=== PATIENT | male | born 1935 | race Caucasian/White ===

== ENCOUNTER 2020-07-30 14:22 | Emergency (ER) | payer MEDICARE, OTHER, SELFPAY ==
[2020-07-30 14:24] VITALS: BP 157/59; PULSE 96; RESP 18; TEMP 36.8; O2SAT 98; BMI 28.8
--- NOTE | 2020-07-30 14:46 | XR_ITS ---
PROCEDURE: XR CHEST 2V CLINICAL HISTORY: cough COMPARISON: CT CT ABDOMEN PELVIS W CON from 07/30/2020 FINDINGS: The cardiomediastinal silhouette and pulmonary vascularity are within normal limits. There is mild biapical pleural thickening. Mild diffuse increased bronchovascular markings which may be related to smoking related lung disease. A slight asymmetric increased markings are present in the right midlung and left lower lobe which could be related to mild areas of infiltrate or atelectatic changes versus scarring. No effusions. No acute bony abnormalities. IMPRESSION: COPD changes with increased markings in the right midlung and left lower lobe which could be related to scarring, areas of infiltrate and/or atelectatic change. Dictated by: Reza Ocasio MD 07/31/2020 07:27 Reza Ocasio MD in [facility] 07/31/2020 07:27
--- NOTE | 2020-07-30 14:46 | [facility]H.EDGENADL ---
ED Disposition Clinical Impression: Colitis Disposition: Home, Self-Care Condition on Discharge: Fair Instructions: DI for Colitis, Keith Diet Additional Instructions: You have been evaluated for abdominal pain. Diagnosed with colitis. No evidence of bacterial infection. Please follow-up bland diet, bananas, rice, applesauce, toast. Take Zofran for nausea. Stay hydrated. Follow-up with your primary care doctor in 24 to 48 hours. Return to the emergency department for any new or worsening symptoms, vomiting or other concerns. Prescriptions: Ondansetron [Zofran 4mg ODT] 4 mg PO Q6 PRN #12 tab PRN Reason: Nausea Transmission Status: Pending to [facility] #[id number] Referrals: PCP,No [Non-Staff] - Time of Disposition: 17:38 - Critical Care Critical Care Time: No Attestation: On 07/30/20, the high probability of a clinically significant, sudden or life threatening deterioration of the following system(s) required my full and direct attention, intervention and personal management. The time I documented below is in addition to time spent performing reported procedures but includes the following listed in this critical care notation. Medical Decision Making - Medical Records Medical records reviewed: Yes: I reviewed the patient's medical records. - Jan Inquiry Pt receiving controlled substance: No Vital Signs: 07/30/20 14:24 07/30/20 16:18 07/30/20 16:30 Temperature 98.2 F Temperature Source Oral Pulse Rate 75 85 Pulse Rate [Radial] 96 H Respiratory Rate 18 Blood Pressure 156/72 H 143/81 H Blood Pressure [Right Arm] 157/59 H Blood Pressure Mean [Right Arm] 91 Blood Pressure Position [Right Arm] Sitting 02 Sat by Pulse Oximetry 98 96 92 L Oxygen Delivery Method Room Air - Lab Data Lab Results 07/30/20 14:35: Urine Color Yellow, Urine Appearance Clear, Urine pH 6.0, Ur Specific [place] 1.025, Urine Protein 1+, Urine Glucose (UA) Negative, Urine Ketones Negative, Urine Blood 2+, Urine Nitrate Negative, Urine Bilirubin Negative, Urine Urobilinogen 1.0, Ur Leukocyte Esterase Negative, Urine RBC 10-20, Urine WBC None, Ur Squamous Epith Cells 3-5, Amorphous Sediment 1+, Urine Bacteria None, Urine Mucus 1+ 07/30/20 14:40: WBC 9.2, RBC 5.89, Hgb 18.1 H, Hct 53.8 H, MCV 91.4, MCH 30.7, MCHC 33.6, RDW 13.2, Plt Count 152, MPV 8.1, Neut % (Auto) 85.8 H, Lymph % (Auto) 8.0 L, Butts % (Auto) 5.0, Eos % (Auto) 0.3, Baso % (Auto) 0.8, Neut # (Auto) 7.9 H, Lymph # (Auto) 0.8, Butts # (Auto) 0.5, Eos # (Auto) 0.0, Baso # (Auto) 0.1, Total Counted 100, Neutrophils % (Manual) 76, Lymphocytes % (Manual) 16, Monocytes % (Manual) 7, Eosinophils % (Manual) 1, Platelet Estimate Normal, RBC Morphology Normal 07/30/20 14:40: Sodium 137, Potassium 4.1, Chloride 100, Carbon Dioxide 28, Anion Gap 13.1, BUN 22 H, Creatinine 0.90, Estimated Creat Clear 69, Estimated GFR 80, Est GFR ( Amer) 97, Glucose 123 H, Calcium 9.1, Total Bilirubin 1.2, AST 49, ALT 71, Alkaline Phosphatase 95, Total Protein 8.2, Albumin 4.6, Globulin 3.6 H, Albumin/Globulin Ratio 1.3, Lipase 66 07/30/20 14:44: Troponin I < 0.01, NT-Pro-B Natriuret Pep 384 Result diagrams: 07/30/20 14:40 07/30/20 14:40 Orders (Tests/Meds): ED MEDICATIONS Discontinued Medications Generic Name Dose Route Start Last Admin Trade Name Freq PRN Reason Stop Dose Admin Dicyclomine HCl 10 mg 07/30/20 17:04 07/30/20 17:18 Dicyclomine 10mg Capsule PO 07/30/20 17:05 10 mg ONCE ONE Administration Iopamidol 75 ml 07/30/20 16:12 07/30/20 16:13 Iopamidol-370 (76%);100ml Bottle IV 07/30/20 16:13 75 ml ONCE ONE Administration Ondansetron HCl 4 mg 07/30/20 17:04 07/30/20 17:18 Ondansetron 4mg Odt SL 07/30/20 17:05 4 mg ONCE ONE Administration Sodium Chloride 10 ml 07/30/20 16:12 07/30/20 16:13 Sodium Chloride 0.9% 10ml Syr (Rad Only) IV 07/30/20 16:13 10 ml ONCE ONE Administration ORDERS Category D
--- NOTE | 2020-07-30 14:47 | CT_ITS ---
PROCEDURE: CT ABDOMEN PELVIS W CON CLINICAL INDICATION: LLQ pain Left lower quadrant pain with nausea and cough COMPARISON: No exams were available for comparison TECHNIQUE: IV Contrast: 75ML Isovue 370 Oral Contrast None Axial images obtained with sagittal and coronal reformats. All CT scans at the facility use one or more dose reduction, viz: automated exposure control, ma/kV adjustment per patient size (including targeted exams where dose is matched to indication, i.e. head), or iterative reconstruction technique. FINDINGS: LOWER THORAX: Multi focal areas of ground-glass attenuation is present in the lower aspect of the upper lobes and bilateral lower lobes with atelectatic change in the lung bases. Coronary artery calcifications are noted. There are also aortic valve calcifications. ABDOMEN & PELVIS: The liver, spleen, adrenal glands, pancreas, have an unremarkable appearance. No radiopaque gallstones. There are bilateral parapelvic and small renal cortical cysts. There is bilateral nephrolithiasis with a small cluster stones in the upper pole of the right kidney 7 x 3 mm and stones in the lower pole of the left kidney measuring up to 7 x 4 mm. There are multiple small stones in the urinary bladder measuring up to 5 mm. No evidence of appendicitis. There is mild thickening of the terminal ileum, ascending colon and transverse colon with a few air-fluid levels in large and small bowel which is nondistended. The prostate is enlarged at 6 by 5 cm. A 3 mm calcific density is present in the region of the proximal penile urethra and could represent a small stone. Diffuse motion artifact obscures fine detail. No acute bony findings. IMPRESSION: 1. Bilateral nephrolithiasis as well as stones in the urinary bladder. No hydronephrosis. No obstructing stones apparent. Possible stone within the penile urethra. 2. Enterocolitis suspected 3. Multifocal ground-glass infiltrates in the mid lower lung zones. Atypical/Covid19 pneumonia is considered 4. Coronary artery and aortic valve calcifications Dictated by: Reza Ocasio MD 07/31/2020 08:36 Reza Ocasio MD in [facility] 07/31/2020 08:36
[2020-07-30 14:53] LABS: Basophils # 0.1 K/mm3 (0-0.2); Basophils % 0.8 % (0.1-2.0); Eosinophils % 0.3 % (0.1-12.0); Hematocrit 53.8 % (42.0-52.0); Lymphocytes # 0.8 K/mm3 (0.7-4.5); Mean Corpuscular HGB Conc 33.6 g/dL (31.8-35.4); Mean Corpuscular Hemoglobin 30.7 pg (27.0-31.2); Mean Corpuscular Volume 91.4 fl (80-94); Mean Platelet Volume 8.1 fl (7.4-10.4); Monocytes # 0.5 K/mm3 (0.1-1.0); Neutrophils # 7.9 K/mm3 (1.8-7.8); Neutrophils % 85.8 % (37.0-80.0); Platelet Count 152 K/mm3 (142-424); Red Blood Count 5.89 M/mm3 (4.60-6.20); Red Cell Distribution Width 13.2 % (11.5-17.5); White Blood Count 9.2 K/mm3 (4.8-10.8)
[2020-07-30 14:56] LABS: Chloride 100 mmol/L (98-107); Hemoglobin 18.1 g/dL (14.1-18.0); MANUAL DIFFERENTIAL MANUAL DIFFERENTIAL (MANUAL DIFF); Potassium 4.1 mmoL/L (3.5-5.1); Sodium 137 mmol/L (136-145)
[2020-07-30 14:58] LABS: Alanine Aminotransferase 71 U/L (12-78); Aspartate Amino Transferase 49 U/L (17-59); Blood Urea Nitrogen 22 mg/dl (9-20); Creatinine Clearance Estimated 69 mL/min (50-200); Estimated Glomerular Filt Rate 80 ml/min (>60); GFR (African American) 97 ML/MIN (>60)
[2020-07-30 14:59] LABS: Albumin Level 4.6 g/dl (3.5-5.0); Albumin/Globulin Ratio 1.3 (1.1-1.8); Alkaline Phosphatase 95 U/L (38-126); Anion Gap 13.1 mEq/L (5-15); Bilirubin,Total 1.2 mg/dl (0.2-1.3); Calcium 9.1 mg/dl (8.4-10.2); Carbon Dioxide 28 mmol/L (22.0-30.0); Globulin 3.6 g/dL (1.3-3.2); Glucose 123 mg/dl (74-100); Lipase 66 U/L (23-300); Total Protein,Serum 8.2 g/dl (6.3-8.2)
[2020-07-30 15:09] LABS: Eosinophils % 1 % (0-3); Lymphocytes % 16 % (10-50); Monocytes % 7 % (2-9); Neutrophils % 76 % (42-76); Platelet Estimate Normal; RBC Morphology Normal; Total Cells Counted 100
--- NOTE | 2020-07-30 15:15 | PC.NURSE ---
Pt to rad.
[2020-07-30 16:06] LABS: NT Pro Brain Natriuretic Pep. 384 pg/mL (0-450)
[2020-07-30 16:10] LABS: Troponin I < 0.01 ng/ml (0.00-0.034)
--- NOTE | 2020-07-30 16:13 | PC.NURSE ---
Pt returned from rad.
[2020-07-30 16:18] VITALS: BP 156/72; PULSE 75; O2SAT 96
[2020-07-30 16:30] VITALS: BP 143/81; PULSE 85; O2SAT 92
[2020-07-30 16:59] LABS: Microscopic, Urine URINE MICROSCOPIC (MICROSCOPIC)
[2020-07-30 17:01] LABS: Appearance,Urine CLEAR (Clear); Bilirubin,Urine Negative (Negative); Blood, Urine 2+ (Negative); Color,Urine YELLOW (Yellow); Glucose,Urine (UA) Negative (Negative); Ketones,Urine Negative (Negative); Leukocyte Esterase,Urine Negative (Negative); Nitrate,Urine Negative (Negative); Protein,Urine 1+ (Negative); Specific Gravity, Urine 1.025 (1.005-1.030)
[2020-07-30 17:14] LABS: Amorphous Sediment,Urine 1+ /lpf; Mucus,Urine 1+ /lpf
[2020-07-30 17:31] LABS: Lactic Acid 1.3 mmol/L (0.7-2.1)
[2020-07-30 18:10] VITALS: BP 139/81; PULSE 80; RESP 18; TEMP 36.8; O2SAT 98
--- NOTE | 2020-07-30 19:30 | PC.NURSE ---
contacted patient and advised him that his covid test came back positive. I advised him to stay isoloated at home and drink plenty of fluids. if he had any questions to reach out to his PCP and that the health department will contact him with in the next 24-72 hours. i informed him that if he starts getting shot of breath or starts getting chest pain to come back into the er for further evaluation.
== END 2020-07-30 18:39 | disposition home or self-care (01) ==
PROVIDERS: Emergency Provider Emergency Medicine; PCP Internal Medicine
DX: U07.1 COVID-19 (principal); K52.9 Noninfective gastroenteritis and colitis, unspecified; I10 Essential (primary) hypertension; E78.5 Hyperlipidemia, unspecified; R06.02 Shortness of breath
CPT/HCPCS: 71046; 74177; 80053; 81001; 83605; 83690; 83880; 84484; 85007; 85025; 93005; 99283; Q9967; U0003

== ENCOUNTER 2020-08-01 10:52 | Emergency (ER) | payer MEDICARE, OTHER, SELFPAY ==
[2020-08-01] VITALS (8 sets, daily range): BP systolic 111–141; BP diastolic 60–80; PULSE 71–92; RESP 20–28; TEMP 36.9; O2SAT 92–97; BMI 28.8
--- NOTE | 2020-08-01 10:58 | XR_ITS ---
PROCEDURE: XR CHEST PORTABLE CLINICAL HISTORY: soa, cough Covid19 positive COMPARISON: CR XR CHEST 2V from 07/30/2020 FINDINGS: The cardiomediastinal silhouette and pulmonary vascularity are within normal limits. There is consolidation in the right upper lobe inferiorly and in the left lower lobe consistent with bilateral pneumonia which has progressed since the previous exam No acute bony abnormalities. IMPRESSION: Worsening bilateral pneumonia Dictated by: Reza Ocasio MD 08/01/2020 11:29 Reza Ocasio MD in [facility] 08/01/2020 11:29
--- NOTE | 2020-08-01 11:01 | [facility].EDGENADL ---
ED Disposition Clinical Impression: COVID-19, Hypoxia Pneumonia Qualifiers: Pneumonia type: due to unspecified organism Laterality: bilateral Lung location: unspecified part of lung Qualified Code(s): J18.9 - Pneumonia, unspecified organism Disposition: Xfer Short-Term Hosp Condition on Discharge: Good Referrals: PCP,No [Non-Staff] - - Critical Care Critical Care Time: No Attestation: On , the high probability of a clinically significant, sudden or life threatening deterioration of the following system(s) required my full and direct attention, intervention and personal management. The time I documented below is in addition to time spent performing reported procedures but includes the following listed in this critical care notation. Medical Decision Making - Medical Records Medical records reviewed: Yes: I reviewed the patient's medical records. - Jan Inquiry Pt receiving controlled substance: No Vital Signs: 08/01/20 10:53 08/01/20 11:30 08/01/20 12:00 Temperature 98.4 F Temperature Source Oral Pulse Rate 84 84 Pulse Rate [Left Radial] 92 H Respiratory Rate 20 28 H 28 H Blood Pressure 111/60 139/65 Blood Pressure [Right Arm] 141/72 H Blood Pressure Mean 77 89 Blood Pressure Mean [Right Arm] 95 02 Sat by Pulse Oximetry 92 L 95 95 Oxygen Delivery Method Nasal Cannula Room Air Oxygen Flow Rate (LPM) 4 4 - Lab Data Lab Results 08/01/20 11:00: WBC 9.2, RBC 5.65, Hgb 17.2, Hct 51.4, MCV 90.9, MCH 30.5, MCHC 33.5, RDW 13.2, Plt Count 172, MPV 8.0, Neut % (Auto) 84.8 H, Lymph % (Auto) 9.4 L, Butler % (Auto) 5.0, Eos % (Auto) 0.1, Baso % (Auto) 0.7, Neut # (Auto) 7.8, Lymph # (Auto) 0.9, Butler # (Auto) 0.5, Eos # (Auto) 0.0, Baso # (Auto) 0.1 08/01/20 11:00: Sodium 136, Potassium 3.8, Chloride 100, Carbon Dioxide 25, Anion Gap 14.8, BUN 28 H D, Creatinine 1.00, Estimated Creat Clear 69, Estimated GFR 71, Est GFR ( Amer) 86, Glucose 144 H, Calcium 8.7, Total Bilirubin 1.3, AST 36 D, ALT 39 D, Alkaline Phosphatase 92, Total Protein 7.4, Albumin 3.9, Globulin 3.5 H, Albumin/Globulin Ratio 1.1 08/01/20 11:00: Lactate 1.9 08/01/20 11:00: Lipase 125 Result diagrams: 08/01/20 11:00 08/01/20 11:00 Orders (Tests/Meds): ED MEDICATIONS Generic Name Dose Route Start Last Admin Trade Name Frenicolle PRN Reason Stop Dose Admin Acetaminophen 650 mg 08/01/20 11:45 Acetaminophen 325mg Tab PO 08/31/20 11:44 Q6HP PRN Mild pain,fever,headache Ascorbic Acid 500 mg 08/01/20 13:00 Ascorbic Acid 500mg Tab PO 08/31/20 12:59 QID SHARRI Dexamethasone Sodium Phosphate 6 mg 08/01/20 12:00 Dexamethasone 4mg/Ml 1ml Vial IV 08/31/20 11:59 DAILY SHARRI Ergocalciferol 50,000 unit 08/01/20 11:45 Ergocalciferol 50,000 Units (1.25mg) Capsule PO 08/31/20 11:44 WEEKLY SHARRI Famotidine 20 mg 08/01/20 21:00 Famotidine 20mg Tablet PO 08/31/20 20:59 BID SHARRI Azithromycin 500 mg/ Sodium 250 mls @ 250 mls/hr 08/01/20 11:45 Chloride IV 08/15/20 11:44 Q24H SHARRI Protocol Ceftriaxone Sodium 2 gm/ 50 mls @ 100 mls/hr 08/01/20 11:45 08/01/20 11:53 Sodium Chloride IV 08/15/20 11:44 100 mls/hr Q24H SHARRI Administration Protocol Zinc Sulfate 220 mg 08/01/20 12:00 Zinc Sulfate 220mg Capsule PO 08/31/20 11:59 DAILY SHARRI Discontinued Medications Generic Name Dose Route Start Last Admin Trade Name Freq PRN Reason Stop Dose Admin Dicyclomine HCl 10 mg 08/01/20 11:53 08/01/20 11:55 Dicyclomine 10mg Capsule PO 08/01/20 11:54 10 mg ONCE ONE Administration Sodium Chloride 1,000 mls @ 999 mls/hr 08/01/20 11:00 08/01/20 11:09 Sod Chlor 0.9% 1000ml Bag IV 08/01/20 12:00 999 mls/hr .Q1H1M SHARRI Administration Miscellaneous 0 each 08/01/20 11:45 Remdesivir Pharmacy Consult Request NOTAPPLIC 08/01/20 11:46 CONSULT PHARMACY ONE Ondansetron HCl 4 mg 08/01/20 11:15 08/01/20 11:44 Ondansetron 4mg/2ml Vi
[2020-08-01 11:17] LABS: Basophils # 0.1 K/mm3 (0-0.2); Basophils % 0.7 % (0.1-2.0); Eosinophils % 0.1 % (0.1-12.0); Hematocrit 51.4 % (42.0-52.0); Hemoglobin 17.2 g/dL (14.1-18.0); Lymphocytes # 0.9 K/mm3 (0.7-4.5); Lymphocytes % 9.4 % (10-50); Mean Corpuscular HGB Conc 33.5 g/dL (31.8-35.4); Mean Corpuscular Hemoglobin 30.5 pg (27.0-31.2); Mean Corpuscular Volume 90.9 fl (80-94); Monocytes # 0.5 K/mm3 (0.1-1.0); Neutrophils # 7.8 K/mm3 (1.8-7.8); Neutrophils % 84.8 % (37.0-80.0); Platelet Count 172 K/mm3 (142-424); Red Blood Count 5.65 M/mm3 (4.60-6.20); Red Cell Distribution Width 13.2 % (11.5-17.5); White Blood Count 9.2 K/mm3 (4.8-10.8)
[2020-08-01 11:27] LABS: Chloride 100 mmol/L (98-107); Potassium 3.8 mmoL/L (3.5-5.1); Sodium 136 mmol/L (136-145)
[2020-08-01 11:29] LABS: Alanine Aminotransferase 39 U/L (12-78); Aspartate Amino Transferase 36 U/L (17-59); Blood Urea Nitrogen 28 mg/dl (9-20); Creatinine Clearance Estimated 69 mL/min (50-200); Estimated Glomerular Filt Rate 71 ml/min (>60); GFR (African American) 86 ML/MIN (>60); Lactic Acid 1.9 mmol/L (0.7-2.1); Lipase 125 U/L (23-300)
[2020-08-01 11:30] LABS: Albumin Level 3.9 g/dl (3.5-5.0); Albumin/Globulin Ratio 1.1 (1.1-1.8); Alkaline Phosphatase 92 U/L (38-126); Anion Gap 14.8 mEq/L (5-15); Bilirubin,Total 1.3 mg/dl (0.2-1.3); Calcium 8.7 mg/dl (8.4-10.2); Carbon Dioxide 25 mmol/L (22.0-30.0); Globulin 3.5 g/dL (1.3-3.2); Glucose 144 mg/dl (74-100); Total Protein,Serum 7.4 g/dl (6.3-8.2)
--- NOTE | 2020-08-01 12:05 | PC.NURSE ---
ANGELITO HERNANDEZ spoke with Dr. Chirinos at this time
--- NOTE | 2020-08-01 12:28 | PC.NURSE ---
SPOKE [facility] , THEY ARE CHECKING FOR BED AVAILABILITY
--- NOTE | 2020-08-01 12:41 | PC.NURSE ---
[facility] called back stating they do have a bed, waiting to have their speak with ER
--- NOTE | 2020-08-01 12:46 | PC.NURSE ---
speaking with at [facility]
--- NOTE | 2020-08-01 13:57 | PC.NURSE ---
Report given to Inocencia Calderón RN at [facility]
== END 2020-08-01 14:33 | disposition short-term general hospital (02) ==
PROVIDERS: Emergency Provider Emergency Medicine; PCP Internal Medicine
DX: U07.1 COVID-19 (principal); R09.02 Hypoxemia; J18.9 Pneumonia, unspecified organism; N20.0 Calculus of kidney; I10 Essential (primary) hypertension; E78.5 Hyperlipidemia, unspecified; Z79.899 Other long term (current) drug therapy
CPT/HCPCS: 71045; 80053; 83605; 83690; 85025; 87040; 96365; 96367; 96375; 99284; J0456; J2405

== ENCOUNTER 2024-04-16 13:48 | Emergency (ER) | payer MEDICARE, SELFPAY ==
--- NOTE | 2024-04-16 14:13 | ED_ITS ---
Discharge Plan Disposition Patient Disposition: Home, Self-Care Condition: Good Prescriptions Prescriptions: New azithromycin [Zithromax] 250 mg tablet 250 mg PO UD DOSE PK Qty: 6 0RF Rx Instructions: Take two (2) tablets today, then one (1) tablet days #2 thru #5 benzonatate 100 mg capsule 100 mg PO TIDP PRN (Reason: Cough) Qty: 30 0RF methylprednisolone 4 mg Tablets,Dose Pack 4 mg PO DIRECTED 6 Days Qty: 21 0RF Rx Instructions: Take 1 pack as directed for 6 days guaifenesin [Mucinex] 600 mg tablet extended release 12hr 600 - 1,200 mg PO BIDP PRN (Reason: Congestion) Qty: 30 0RF No Action atorvastatin 80 mg Tablet 80 mg PO HS aspirin 81 mg Tablet,Chewable 81 mg PO DAILY albuterol sulfate 90 mcg/actuation Hfa Aerosol Inhaler 1 inh INHALATION QID lisinopril 40 mg Tablet 40 mg PO DAILY empagliflozin 10 mg Tablet 10 mg PO DAILY Referrals Follow up/Referrals: Provider,Referral, MD [Primary Care Provider] - See instructions Activity Restrictions/Add. Instructions Additional Instructions/Restrictions: Drink plenty of fluids. Take tylenol or ibuprofen for pain or fever. Take the medications as directed. Follow up with your regular doctor. GO TO THE ER FOR ANY WORSENING SYMPTOMS Clinical Impressions Clinical Impression: Sinusitis, Bronchitis Instructions Patient Instructions: Sinusitis, DI for Sinusitis Print Language Print Language: [place] Discharge ED Provider: Daniel Santos [facility] HPI General Stated complaint: congestion, cough up phlegm, wheezing Time Seen by Provider: 04/16/24 14:13 History of Present Illness Provider Complaint: He states that for the past 4 days he has had worsening sinus and chest congestion. He denies any fever/chills. Related Data Home Medications ?Medication ?Instructions ?Recorded ?Confirmed albuterol sulfate 90 mcg/actuation 1 inh inhalation QID 04/16/24 04/16/24 aerosol inhaler aspirin 81 mg chewable tablet 81 mg PO DAILY 04/16/24 04/16/24 atorvastatin 80 mg tablet 80 mg PO HS 04/16/24 04/16/24 empagliflozin 10 mg tablet 10 mg PO DAILY 04/16/24 04/16/24 lisinopril 40 mg tablet 40 mg PO DAILY 04/16/24 04/16/24 Previous Rx's ?Medication ?Instructions ?Recorded azithromycin 250 mg tablet 250 mg PO UD DOSE PK #6 tabs 04/16/24 (Zithromax) benzonatate 100 mg capsule 100 mg PO TIDP PRN Cough #30 caps 04/16/24 guaifenesin 600 mg tablet, 600 - 1,200 mg (1 - 2 x 600 mg) PO 04/16/24 extended release 12 hr (Mucinex) BIDP PRN Congestion #30 tabs methylprednisolone 4 mg tablets in 4 mg PO DIRECTED 6 days #21 tabs 04/16/24 a dose pack Allergies Allergy/AdvReac Type Severity Reaction Status Date / Time No Known Allergies Allergy Verified 07/30/20 15:01 [facility] Disclaimer: The information contained in this section may have been updated after the patient was seen, as this information can be updated by other users. Social History Smoking Status: Never smoker alcohol intake: never current occupational status: retired Travel in the last 8 weeks: None ROS Obtained: Yes All systems reviewed & no additional complaints except as documented Constitutional Constitutional: Reports poor appetite Eyes Eyes: Reports system reviewed and no additional complaints, except as documented ENT Ears, Nose, Mouth, and Throat: Reports as per HPI Cardiovascular Cardiovascular: Reports system reviewed and no additional complaints, except as documented and Denies chest pain Respiratory Respiratory: Denies shortness of breath, Reports chest congestion, Reports cough, Denies stridor and Denies wheezing Gastrointestinal Gastrointestingal: Reports system reviewed and no additional complaints, except as documented; Denies abdominal pain, diarrhea or vomiting Musculoskeletal Musculoskeletal: Reports system reviewed and no additional complaints, except as documented and Denies arthralgias Integumentary/Breasts Skin/Breast: Reports system reviewed and no additional complaints, except as documented and Denies rash Neurologic Neurologic: Denies paresthesias Allergic/Immunologic Allergic/Immunologic: Denies wheezing Physical Exam General General appearance: alert and in no apparent distress Eye Eye exam: Present normal appearance, PERRL and EOMI ENT ENT exam: Present mucous membranes moist and normal external ear exam Expanded ENT Exam External ear exam: Present normal external inspection TM/Canal exam: Bilateral TM: erythema and bulging Nose exam: Absent sinus tenderness Nasal speculum exam: Bilateral: normal Mouth exam: Present normal external inspection; Absent drooling Teeth exam: Present normal inspection Throat exam: Present tonsillar erythema and tonsillomegaly Neck Neck exam: Present normal inspection, full ROM and trachea midline; Absent tenderness, lymphadenopathy or thyromegaly Chest Chest inspection: Present normal inspection and symmetric chest wall rise; Absent tenderness or rash Respiratory Respiratory exam: Present normal lung sounds bilaterally; Absent respiratory distress, wheezes, stridor or accessory muscle use Cardiovascular Cardiovascular exam: Present regular rate, normal rhythm and normal heart sounds Abdominal Exam Abdominal exam: Present soft; Absent distention, tenderness, guarding, rebound or rigidity Extremities Exam Extremities exam: Present normal inspection, full ROM and normal capillary refill; Absent tenderness or calf tenderness Back Exam Back exam: Present normal inspection and full ROM; Absent tenderness Neurological Exam Neurological exam: Present alert and oriented X3 Psychiatric Psychiatric exam: Present normal affect and normal mood Skin Skin exam: Present warm, dry, intact and normal color Lymphatic Lymphatic Findings: no adenopathy Medical Decision Making Medical Records Medical records reviewed: No I reviewed the patient's medical records. Screening: Per USPSTF and CDC recommendations, given the prevalence of disease in our region, it is our hospital?s policy to screen for HIV and viral Hepatitis for all patients aged 18 and over and those with ongoing risk factors. Jan Inquiry Pt receiving controlled substance: No Lab Data Lab results reviewed: Yes I reviewed the patient's lab results.
--- NOTE | 2024-04-16 14:14 | XR_ITS ---
FINAL REPORT CLINICAL HISTORY: wheezing, r/o PNA FINDINGS: PA and lateral views of the chest are obtained. There is no prior exam for comparison. The cardiac and mediastinal silhouettes are within normal limits. The lungs are clear. There is elevation of the right hemidiaphragm, which may be chronic. There is no pleural effusion or pneumothorax. IMPRESSION: No radiographic evidence of acute cardiac or pulmonary disease. Reviewed, Interpreted and Dictated by Lisbeth Couch MD Transcribed by Lorie Paris Authenticated and . [facility]
[2024-04-16 14:15] VITALS: BP 148/74; PULSE 76; RESP 20; TEMP 36.1; O2SAT 96; BMI 31.3
[2024-04-16] MEDS: DEXAMETHASONE 4MG/ML 1ML VIAL 6 MG IM (15:15)
[2024-04-16] MEDS: cefTRIAXone 1GM VIAL 1 GM IM (15:15)
[2024-04-16] MEDS: LIDOCAINE 1% 5ML PF VIAL IM (15:16)
[2024-04-16 15:35] VITALS: BP 148/74; PULSE 76; RESP 20; TEMP 36.1
[2024-04-16 15:46] LABS: Coronavirus 19, PCR Not Detected (NotDetected); Influenza A, PCR Not Detected (NotDetected); Influenza B, PCR Not Detected (NotDetected)
== END 2024-04-16 15:49 | disposition home or self-care (01) ==
PROVIDERS: Emergency Provider Nurse Practitioner Family
DX: J01.90 Acute sinusitis, unspecified (principal); J20.9 Acute bronchitis, unspecified
CPT/HCPCS: 71046; 87636; 96372; 99213; G0381; J0696; J1100